=== PATIENT | female | born 1975 | race Caucasian/White ===

== ENCOUNTER 2021-05-12 20:27 | Emergency (ER) | payer OTHER, SELFPAY ==
[2021-05-12 20:34] VITALS: BP 133/77; PULSE 87; RESP 18; TEMP 36.9; O2SAT 100
[2021-05-12 21:10] LABS: Bacteria Urine Few (2-10); Culture Indicated Urine Specimen Cultured; RBC Urine 1-5/HPF (0-5/HPF); Squamous Epithelial Cell Urine 0-1 /HPF (0-5/HPF); WBC Urine 10-30/HPF (0-5/HPF)
[2021-05-12] MEDS: cephALEXin 250 MG CAPSULE 500 MG PO (21:22)
[2021-05-12] MEDS: PHENAZOPYRIDINE 100 MG TABLET 200 MG PO (21:22)
--- NOTE | 2021-05-12 21:35 | ED_ITS ---
HPI - Female Genitourinary General Chief complaint: Urogenital-Female Stated complaint: UTI BLOOD IN URINE Time Seen by Provider: 05/12/21 20:48 Source: patient Mode of arrival: Ambulatory History of Present Illness HPI Narrative: The patient developed dysuria this morning, followed by hematuria. She has mild suprapubic discomfort. She has no back pain, or flank pain. She has nausea or vomiting. She has no fever. She has no chronic medical problems. She has not prone to frequent UTI. She has no history of kidney stones. Related Data Previous Rx's Medication Instructions Recorded cephalexin 500 mg capsule 500 mg PO Q8H 7 Days #21 cap 05/12/21 phenazopyridine 200 mg tablet 200 mg PO Q8H PRN 3 Days #9 tab 05/12/21 (Pyridium) Review of Systems Constitutional Constitutional: Reports as per HPI Comments: No fever chills, no recent illness Cardiovascular Cardiovascular: Denies dyspnea Respiratory Respiratory: Denies cough and Denies dyspnea Gastrointestinal Gastrointestinal: Reports as per HPI and Reports abdominal pain Genitourinary Genitourinary: Reports as per HPI, Reports hematuria and Reports dysuria Musculoskeletal Musculoskeletal: Denies back pain Integumentary/Breasts Skin/Breast: Denies rash Neurologic Comments: No focal weakness Exam Initial Vital Signs Initial Vital Signs: Vital Signs Temperature 98.5 F 05/12/21 20:34 Pulse Rate 87 05/12/21 20:34 Respiratory Rate 18 05/12/21 20:34 Blood Pressure 133/77 05/12/21 20:34 Pulse Oximetry 100 05/12/21 20:34 Const General: cooperative, healthy appearing and comfortable Resp Effort & Inspection: normal respiratory effort Auscultation: clear to auscultation bilaterally GI Inspection: normal to inspection Palpation: soft Other: Mild suprapubic tenderness. No distension. No guarding or rebound. No masses. Back/Spine/Pelvis Back: No CVA tenderness Course Course Course Narrative: Symptoms are consistent with UTI. Urine evaluation shows hematuria, with leukocytes. She has been started on Keflex, Pyridium for dysuria. A urine culture has been initiated. Orders Ordered: ED Orders 05/12/21 21:00 Urine Culture Stat Urine Microscopic Stat Discontinued Medications Cephalexin HCl (Cephalexin 250 Mg Capsule) 500 mg PO NOW ONE Stop: 05/12/21 21:17 Last Admin: 05/12/21 21:22 Dose: 500 mg Documented by: SUNITA Phenazopyridine HCl (Phenazopyridine 100 Mg Tablet) 200 mg PO NOW ONE Stop: 05/12/21 21:17 Last Admin: 05/12/21 21:22 Dose: 200 mg Documented by: SUNITA Vital Signs Vital signs: Vital Signs - 8 hr 05/12/21 20:34 Temperature 98.5 F Pulse Rate 87 Respiratory Rate 18 Blood Pressure 133/77 Pulse Oximetry 100 MDM - Female Genitourinary Lab Data Labs: Lab Results 05/12/21 Range/Units 21:00 Urine RBC 1-5/hpf (0-5/HPF) Urine WBC 10-30/hpf H (0-5/HPF) Ur Squamous Epith Cells 0-1 /hpf (0-5/HPF) Urine Bacteria Few (2-10) H (None) Ur Culture Indicated? Specimen cultured Urine Dip Bedside Urine Glucose 100 mg/dl Bedside Urine Ketone - Negative Urine Specific [place] 1.010 Bedside Urine Occult Blood +++ Bedside Urine pH 6.0 Bedside Urine Protein - Negative Bedside Urine Urobilinogen - Negative Bedside Urine Nitrite - Negative Bedside Urine Leukocytes ++ 125 Esterase Discharge Plan Departure Clinical Impression: Urinary tract infection Qualifiers: Urinary tract infection type: acute cystitis Hematuria presence: with hematuria Qualified Code(s): N30.01 - Acute cystitis with hematuria Instructions: DI for Urinary Tract Infection (UTI) Activity Restrictions/Additional Instructions: Be sure you are drinking plenty of fluids. You will want to remain well hydrated. Keflex 3 times daily for 7 days. This is antibiotic. Pyridium every 8 hours for bladder spasm. Return the ER for increasing discomfort, fever or back pain. Prescriptions: New cephalexin 500 mg capsule 500 mg PO Q8H 7 Days Qty: 21 RF: 0 phenazopyridine [Pyridium] 200 mg tablet 200 mg PO Q8H PRN (Reason: pain) 3 Days Qty: 9 RF: 0
== END 2021-05-12 21:46 | disposition home or self-care (01) ==
PROVIDERS: Emergency Provider Emergency Medicine
DX: N30.01 Acute cystitis with hematuria (principal)
CPT/HCPCS: 81003; 81015; 87077; 87086; 87186; 99283